=== PATIENT | male | born 1995 | race Caucasian/White ===

== ENCOUNTER → 2019-05-06 | Outpatient (CLI) | payer BC ==
--- NOTE | 2019-05-06 12:32 | US ---
EXAMINATION TYPE: US scrotum with doppler. Grayscale and color Doppler Duplex imaging performed of t shyla scrotum. 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 Patient has felt a palpable lump left testicle x 8 months, no pain or swelling EXAM MEASUREMENTS: TESTICLES: Right Testicle: 5.4 x 2.1 x 3.1 cm Left Testicle: 5.1 x 2.1 x 3.0 cm EPIDIDYMIS HEAD: Right Epididymis: 1.4 cm Left Epididymis: 0.9 cm Doppler performed to assess for testicular vascularity; good bilateral color flow and waveforms are s een. There is no evidence of testicular torsion. Presence of hydroceles: No Presence of varicoceles: Yes, left Right side epididymal cyst measuring 1.1 x 0.9 x 0.9 cm. Small cystic area visualized left epididymal measuring 0.3 cm IMPRESSION: 1. Left varicocele and small benign epididymal cyst measuring 3 mm. 2. Benign 1.1 cm epididymal cyst on the right.
== END | disposition home or self-care (01) ==
LOC: RADUSWWP 10:44
PROVIDERS: ATTEND Family Medicine
DX: I86.1 Scrotal varices (principal); N50.3 Cyst of epididymis
CPT/HCPCS: 76870; 93975